=== PATIENT | female | born 1990 | race Caucasian/White ===

== ENCOUNTER 2018-06-29 07:40 | Emergency (ER) | payer MEDICAID ==
[2018-06-29 07:53] VITALS: O2SAT 97
[2018-06-29] MEDS ORDERED: TORAdol 30 mg Injection IM ONE (08:12)
[2018-06-29 08:19] LABS: BASOPHIL % 0.2 % (0.0-0.4); Basophil (Absolute #) 0.02 (0-0.4); Eosinophil % 2.1 % (0.00-5.0); Granulocyte Absolute (ANC) 5.94 (1.4-6.9); Granulocytes % 63.6 % (36.0-66.0); Hematocrit 44.4 % (35-47); Hemoglobin 14.8 gm/dl (12.0-16.0); Lymphocyte (Absolute #) 2.11 (1.0-4.6); Lymphocytes % 22.6 % (24.0-44.0); Mean Cell Volume 84.1 fl (78-100); Mean Corpuscular Hgb Concent. 33.3 g/dl (32-36); Mean Platelet Volume 9.9 fl (6-9.5); Monocyte (Absolute #) 1.07 (0.0-1.3); Monocytes % 11.5 % (0.0-12.0); Platelet Count 259 K/mm3 (150-450); Red Blood Count 5.28 M/mm3 (4.1-5.4); Red Cell Distribution Width 14.6 % (11.5-14.0); White Blood Count 9.3 K/mm3 (4.0-10.5)
[2018-06-29] MEDS ORDERED: TORAdol 30 mg Injection ONE (08:19)
[2018-06-29 08:30] LABS: ANION GAP 13.3 MEQ/L (5-15); BLOOD UREA NITROGEN 9 mg/dL (7-17); CHLORIDE 108 mmol/L (98-107); Carbon Dioxide 23 mmol/L (22-30); Creatinine 1 0.62 mg/dL (0.52-1.04); Glucose 109 mg/dL (74-106); SODIUM 140 mmol/L (137-145)
--- NOTE | 2018-06-29 08:30 | ERPHSYRPT ---
- History of Present Illness Time Seen by Provider: 06/29/18 08:10 Source: patient Exam Limitations: no limitations Patient Subjective Stated Complaint: here for a possible abscess to right groin area for 10 days now. Triage Nursing Assessment: pt has tenderness to right groin area, no swelling, drainage noted. pt alert, and walked in , Physician History: The patient is a 27-year-old female complaining of an abscess to the right groin that began 10 days ago. Early in the infection, the area was red and raised. She has a history of MRSA. She thought this was another MRSA infection. She took ibuprofen and put hot compresses on the region. The swelling began to become smaller. There was no drainage of the abscess. This morning when she woke up, it was very painful for her to walk. It was also very painful to touch the area. As per our discussion, she would like to try a trial of antibiotics today without incision and drainage. She states that she did not have a fever. Her past medical history is significant for MRSA infections. Timing/Duration: day(s) (10), gradual onset, improved (but now painful) Quality: painful Severity: moderate Location: other (right groin) Possible Causes: no cause identified Associated Symptoms: denies symptoms Allergies/Adverse Reactions: No Known Drug Allergies Allergy (Unverified 03/16/16 12:22) Hx Tetanus, Diphtheria Vaccination/Date Given: Yes Hx Influenza Vaccination/Date Given: Yes Hx Pneumococcal Vaccination/Date Given: No Immunizations Up to Date: Yes - Review of Systems Constitutional: No Fever, No Chills Eyes: No Symptoms Ears, Nose, & Throat: No Symptoms Respiratory: No Cough, No Dyspnea Cardiac: No Chest Pain, No Edema, No Syncope Abdominal/Gastrointestinal: No Abdominal Pain, No Nausea, No Vomiting, No Diarrhea Genitourinary Symptoms: No Dysuria Musculoskeletal: No Back Pain, No Neck Pain Skin: Induration Neurological: No Dizziness, No Focal Weakness, No Sensory Changes Psychological: No Symptoms Endocrine: No Symptoms Hematologic/Lymphatic: No Symptoms Immunological/Allergic: No Symptoms All Other Systems: Reviewed and Negative - Past Medical History Pertinent Past Medical History: No Neurological History: No Pertinent History ENT History: No Pertinent History Cardiac History: No Pertinent History Respiratory History: No Pertinent History Endocrine Medical History: No Pertinent History Musculoskeletal History: No Pertinent History GI Medical History: No Pertinent History History: No Pertinent History Psycho-Social History: No Pertinent History Female Reproductive Disorders: No Pertinent History - Past Surgical History Past Surgical History: Yes Neuro Surgical History: No Pertinent History Cardiac: No Pertinent History Respiratory: No Pertinent History Gastrointestinal: Appendectomy Genitourinary: No Pertinent History Musculoskeletal: Orthopedic Surgery Female Surgical History: Section Other Surgical History: r elbow - Social History Smoking Status: Current every day smoker How long have you smoked: 4 years Exposure to second hand smoke: Yes Drug Use: none Patient Lives Alone: Yes - Female History Hx Last Menstrual Period: 11 days ago Hx Now: No - Nursing Vital Signs Nursing Vital Signs: Initial Vital Signs Temperature 97.9 F 06/29/18 07:48 Pulse Rate 82 06/29/18 07:48 Respiratory Rate 16 06/29/18 07:48 Blood Pressure 115/80 06/29/18 07:48 O2 Sat by Pulse Oximetry 97 06/29/18 07:48 Pain Scale Pain Intensity 4 - Physical Exam General Appearance: no apparent distress, alert Eye Exam: PERRL/EOMI, eyes nml inspection Ears, Nose, Throat Exam: normal ENT inspection, pharynx normal, moist mucous membranes Neck Exam: normal inspection, non-tender, supple, full range of motion Respiratory Exam: normal breath sounds, lungs clear, No respiratory distress Cardiovascular Exam: regular rate/rhythm, normal heart sounds Gastrointestinal/Abdomen Exam: soft, mass, No tenderness Pelvic Exam: not done Rectal Exam: not done Back Exam: normal inspection, normal range of motion, No CVA tenderness, No vertebral tenderness Extremity Exam: normal inspection, normal range of motion Neurologic Exam: alert, oriented x 3, cooperative, normal mood/affect, sensation nml, No motor deficits Skin Exam: other (Examination of the fold of the right groin shows a healed small wound to the mid groin fold. There is very small palpable tender 0.5 x 1 cm hard mass. This mass is exquisitely tender to light palpation. There is no fluctuance.) SpO2 Interpretation: normal SpO2: 97 Ordered Tests: Active Orders 24 hr Category Date Time Status BMP Stat Lab 06/29/18 08:10 Completed CBC W DIFF Stat Lab 06/29/18 08:10 Completed HCG QUALITATIVE,SERUM Stat Lab 06/29/18 08:10 Completed Medication Summary Discontinued Medications Generic Name Dose Route Start Last Admin Trade Name Freq PRN Reason Stop Dose Admin Ketorolac Tromethamine 60 mg 06/29/18 08:12 06/29/18 08:20 Toradol 30 Mg Injection IM 06/29/18 08:13 60 mg STAT ONE Administration Ketorolac Tromethamine Confirm 06/29/18 08:19 Toradol 30 Mg Injection Administered 06/29/18 08:20 Dose 60 mg .ROUTE .STK-MED ONE Lab/Rad Data: Laboratory Result Diagrams 06/29/18 08:10 06/29/18 08:10 Laboratory Results 06/29/18 06/29/18 06/29/18 Range/Units 08:10 08:10 08:10 WBC 9.3 (4.0-10.5) K/mm3 RBC 5.28 (4.1-5.4) M/mm3 Hgb 14.8 (12.0-16.0) gm/dl Hct 44.4 (35-47) % MCV 84.1 (78-100) fl MCH 28.0 (26-32) pg MCHC 33.3 (32-36) g/dl RDW 14.6 H (11.5-14.0) % Plt Count 259 (150-450) K/mm3 MPV 9.9 H (6-9.5) fl Gran % 63.6 (36.0-66.0) % Eos # (Auto) 0.20 (0-0.5) Absolute Lymphs (auto) 2.11 (1.0-4.6) Absolute Monos (auto) 1.07 (0.0-1.3) Lymphocytes % 22.6 L (24.0-44.0) % Monocytes % 11.5 (0.0-12.0) % Eosinophils % 2.1 (0.00-5.0) % Basophils % 0.2 (0.0-0.4) % Absolute Granulocytes 5.94 (1.4-6.9) Basophils # 0.02 (0-0.4) Sodium 140 (137-145) mmol/L Potassium 4.0 (3.5-5.1) mmol/L Chloride 108 H (98-107) mmol/L Carbon Dioxide 23 (22-30) mmol/L Anion Gap 13.3 (5-15) MEQ/L BUN 9 (7-17) mg/dL Creatinine 0.62 (0.52-1.04) mg/dL Estimated GFR > 60.0 ML/MIN Glucose 109 H (74-106) mg/dL Calcium 9.0 (8.4-10.2) mg/dL Serum , Qual NEGATIVE (Negative) - Progress Progress: improved Progress Note: 06/29/18 08:36 The tender palpable mass in the right groin could be a small painful indurated abscess. However, it also could be a tender lymph node. I discussed treatment options with the patient. She prefers to have a trial of antibiotics today and reassess over the next few days. 06/29/18 09:10 Pt better after toradol 60 mg IM. Counseled pt/family regarding: diagnosis, need for follow-up - Departure Time of Disposition: 09:12 Departure Disposition: Home Clinical Impression: Lymphadenitis Condition: Stable Critical Care Time: No Referrals: CRISTY WIN MD [Primary Care Provider] - Additional Instructions: You likely have a swollen lymph node as result of the abscess that you had for 10 days. You were given Toradol 60 mg by IM in the ER. As per our discussion, we will try clindamycin 300 mg 4 times a day for 10 days. You may also take Tylenol No. 3 one tablet every 4-6 hours as needed for pain. Take Tylenol and ibuprofen as needed as well. Follow-up with your primary medical doctor in one to 2 days. Prescriptions: Clindamycin HCl 300 mg PO QID #40 capsule Codeine Phosphate/APAP #3 [Tylenol #3 Tablet] 1 tab PO Q4-6HPRN PRN #6 tablet PRN Reason: Mild To Moderate Pain
[2018-06-29 09:30] VITALS: BP 129/61; PULSE 74
== END 2018-06-29 09:30 | disposition home or self-care (01) ==
LOC: ED 07:40
DX: I88.9 Nonspecific lymphadenitis, unspecified (principal); Z86.14 Personal history of Methicillin resistant Staphylococcus aureus infection
CPT/HCPCS: 36415; 80048; 81025; 85025; 96372; 99284; J1885

== ENCOUNTER 2018-11-19 19:43 | Emergency (ER) | payer MEDICAID ==
[2018-11-19] MEDS ORDERED: Sodium Chloride 0.9% 1000 ML 1,000 ML IV STA (20:59)
[2018-11-19] MEDS ORDERED: Zofran 4 MG/2 ML VIAL IV ONE (20:59)
[2018-11-19] MEDS ORDERED: Hydromorphone 1 mg/ml Ampule IV ONE ×2 (20:59→23:16)
--- NOTE | 2018-11-19 20:59 | ERPHSYRPT ---
- History of Present Illness Time Seen by Provider: 11/19/18 20:50 Historian: patient, family Exam Limitations: no limitations Physician History: 27 y/o white female presents with bilat flank pain. began this am and worse. no vaginal bleeding or hematuria today but in the last 3 months, pt states she has had intermittent vaginal and rectal bleeding. no sig abd pain. no vomiting. much worse than any uti in past Timing/Duration: today, constant, sudden, worse Quality: sharpness, stabbing Abdominal Pain Onset Location: suprapubic, flank (bilateral) Pain Radiation: flank Severity of Pain-Max: moderate Severity of Pain-Current: moderate Modifying Factors: Improves With: nothing Associated Symptoms: No nausea, No vomiting Previous symptoms: no prior history Allergies/Adverse Reactions: No Known Drug Allergies Allergy (Unverified 03/16/16 12:22) Hx Tetanus, Diphtheria Vaccination/Date Given: Yes Hx Influenza Vaccination/Date Given: Yes Hx Pneumococcal Vaccination/Date Given: No - Review of Systems Constitutional: No Symptoms Eyes: No Symptoms Ears, Nose, & Throat: No Symptoms Respiratory: No Symptoms Cardiac: No Symptoms Abdominal/Gastrointestinal: Abdominal Pain (suprapubic pain) Genitourinary Symptoms: No Symptoms Musculoskeletal: Back Pain (bilat flank) Skin: No Symptoms Neurological: No Symptoms Psychological: No Symptoms Endocrine: No Symptoms Hematologic/Lymphatic: No Symptoms Immunological/Allergic: No Symptoms All Other Systems: Reviewed and Negative - Past Medical History Pertinent Past Medical History: No Neurological History: No Pertinent History ENT History: No Pertinent History Cardiac History: No Pertinent History Respiratory History: No Pertinent History Endocrine Medical History: No Pertinent History Musculoskeletal History: No Pertinent History GI Medical History: No Pertinent History History: No Pertinent History Psycho-Social History: No Pertinent History Female Reproductive Disorders: No Pertinent History - Past Surgical History Past Surgical History: Yes Neuro Surgical History: No Pertinent History Cardiac: No Pertinent History Respiratory: No Pertinent History Gastrointestinal: Appendectomy Genitourinary: No Pertinent History Musculoskeletal: Orthopedic Surgery Female Surgical History: Section Other Surgical History: r elbow - Social History Smoking Status: Current every day smoker How long have you smoked: 4 years Exposure to second hand smoke: Yes Drug Use: none Patient Lives Alone: Yes - Nursing Vital Signs Nursing Vital Signs: Initial Vital Signs Pulse Rate 61 11/19/18 20:50 Respiratory Rate 16 11/19/18 20:50 Blood Pressure 140/82 11/19/18 20:50 O2 Sat by Pulse Oximetry 98 11/19/18 20:50 Pain Scale Pain Intensity 3 - Physical Exam General Appearance: moderate distress, alert, anxiety Eye Exam: PERRL/EOMI, eyes nml inspection Ears, Nose, Throat Exam: normal ENT inspection, moist mucous membranes Neck Exam: normal inspection, non-tender, supple, full range of motion Respiratory Exam: normal breath sounds, lungs clear, airway intact, No chest tenderness, No respiratory distress Cardiovascular Exam: regular rate/rhythm, normal heart sounds, normal peripheral pulses Gastrointestinal/Abdomen Exam: soft, tenderness (suprapubic), guarding, No rebound Pelvic Exam: not done Rectal Exam: not done Back Exam: normal inspection, normal range of motion, CVA tenderness (bilat), No vertebral tenderness Extremity Exam: normal inspection, normal range of motion, pelvis stable Neurologic Exam: alert, cooperative, 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 Skin Exam: normal color, warm, dry Lymphatic Exam: No adenopathy SpO2 Interpretation: normal O2 Delivery: Room Air - Course Nursing assessment & vital signs reviewed: Yes Ordered Tests: Active Orders 24 hr Category Date Time Status IV Insertion STAT Care 11/19/18 20:59 Active ABDOMEN AND PELVIS W/0 CONTRAS [CT] Stat Exams 11/19/18 21:35 Taken AMYLASE Stat Lab 11/19/18 21:23 Completed CBC W DIFF Stat Lab 11/19/18 21:23 Completed CMP Stat Lab 11/19/18 21:23 Completed CULTURE,URINE Stat Lab 11/19/18 22:15 Received HCG,QUALITATIVE URINE Stat Lab 11/19/18 22:15 Completed LIPASE Stat Lab 11/19/18 21:23 Completed Lactic Acid Stat Lab 11/19/18 21:16 Completed UA W/RFX UR CULTURE Stat Lab 11/19/18 22:15 Completed Medication Summary Generic Name Dose Route Start Last Admin Trade Name Freq PRN Reason Stop Dose Admin Ceftriaxone Sodium/Dextrose 1 g in 50 mls @ 100 mls/hr 11/19/18 22:43 Rocephin 1 Gm-D5w 50 Ml Bag IV 11/19/18 23:12 STAT STA Discontinued Medications Generic Name Dose Route Start Last Admin Trade Name Freq PRN Reason Stop Dose Admin Hydromorphone HCl 1 mg 11/19/18 20:59 11/19/18 21:20 Hydromorphone 1 Mg/Ml Ampule IV 11/19/18 21:00 1 mg STAT ONE Administration Hydromorphone HCl Confirm 11/19/18 21:17 Hydromorphone 1 Mg/Ml Ampule Administered 11/19/18 21:18 Dose 1 mg .ROUTE .STK-MED ONE Sodium Chloride 1,000 mls @ 999 mls/hr 11/19/18 20:59 11/19/18 21:20 Sodium Chloride 0.9% 1000 Ml IV 11/19/18 21:59 999 mls/hr .Q1H1M STA Administration Sodium Chloride Confirm 11/19/18 21:17 Sodium Chloride 0.9% 1000 Ml Administered 11/19/18 21:18 Dose 1,000 mls @ ud .ROUTE .STK-MED ONE Ondansetron HCl 4 mg 11/19/18 20:59 11/19/18 21:20 Zofran 4 Mg/2 Ml Vial IV 11/19/18 21:00 4 mg STAT ONE Administration Ondansetron HCl Confirm 11/19/18 21:16 Zofran 4 Mg/2 Ml Vial Administered 11/19/18 21:17 Dose 4 mg .ROUTE .STK-MED ONE Lab/Rad Data: Laboratory Result Diagrams 11/19/18 21:23 11/19/18 21:23 Laboratory Results 11/19/18 11/19/18 11/19/18 Range/Units 22:15 22:15 21:23 WBC (4.0-10.5) K/mm3 RBC (4.1-5.4) M/mm3 Hgb (12.0-16.0) gm/dl Hct (35-47) % MCV (78-100) fl MCH (26-32) pg MCHC (32-36) g/dl RDW (11.5-14.0) % Plt Count (150-450) K/mm3 MPV (6-9.5) fl Gran % (36.0-66.0) % Eos # (Auto) (0-0.5) Absolute Lymphs (auto) (1.0-4.6) Absolute Monos (auto) (0.0-1.3) Lymphocytes % (24.0-44.0) % Monocytes % (0.0-12.0) % Eosinophils % (0.00-5.0) % Basophils % (0.0-0.4) % Absolute Granulocytes (1.4-6.9) Basophils # (0-0.4) Sodium 140 (137-145) mmol/L Potassium 3.6 (3.5-5.1) mmol/L Chloride 106 (98-107) mmol/L Carbon Dioxide 25 (22-30) mmol/L Anion Gap 12.6 (5-15) MEQ/L BUN 8 (7-17) mg/dL Creatinine 0.62 (0.52-1.04) mg/dL Estimated GFR > 60.0 ML/MIN Glucose 101 (74-106) mg/dL Lactic Acid (0.4-2.0) Calcium 9.5 (8.4-10.2) mg/dL Total Bilirubin 0.30 (0.2-1.3) mg/dL AST 19 (14-36) U/L ALT 24 (0-35) U/L Alkaline Phosphatase 71 (38-126) U/L Serum Total Protein 7.1 (6.3-8.2) g/dL Albumin 4.1 (3.5-5.0) g/dL Amylase 96 (30-110) U/L Lipase 70 (23-300) U/L Urine Color YELLOW (YELLOW) Urine Appearance CLOUDY (CLEAR) Urine pH 5.0 (5-6) Ur Specific [place] 1.028 (1.005-1.025) Urine Protein NEGATIVE (Negative) Urine Ketones NEGATIVE (NEGATIVE) Urine Blood NEGATIVE (0-5) Koby/ul Urine Nitrite NEGATIVE (NEGATIVE) Urine Bilirubin NEGATIVE (NEGATIVE) Urine Urobilinogen NEGATIVE (0-1) mg/dL Ur Leukocyte Esterase MODERATE (NEGATIVE) Urine WBC (Auto) 51-100 (0-5) /HPF Urine RBC (Auto) 26-50 (0-2) /HPF U Epithel Cells (Auto) FEW (FEW) /HPF Urine Bacteria (Auto) FEW (NEGATIVE) /HPF Urine Mucus (Auto) MANY (NEGATIVE) /HPF Urine Culture Reflexed YES (NO) Urine Glucose NEGATIVE (NEGATIVE) mg/dL Urine HCG, Qual NEGATIVE (Negative) 11/19/18 11/19/18 Range/Units 21:23 21:16 WBC 10.4 (4.0-10.5) K/mm3 RBC 5.04 (4.1-5.4) M/mm3 Hgb 14.5 (12.0-16.0) gm/dl Hct 42.8 (35-47) % MCV 84.9 (78-100) fl MCH 28.8 (26-32) pg MCHC 33.9 (32-36) g/dl RDW 14.2 H (11.5-14.0) % Plt Count 246 (150-450) K/mm3 MPV 10.0 H (6-9.5) fl Gran % 58.8 (36.0-66.0) % Eos # (Auto) 0.23 (0-0.5) Absolute Lymphs (auto) 2.98 (1.0-4.6) Absolute Monos (auto) 1.04 (0.0-1.3) Lymphocytes % 28.7 (24.0-44.0) % Monocytes % 10.0 (0.0-12.0) % Eosinophils % 2.2 (0.00-5.0) % Basophils % 0.3 (0.0-0.4) % Absolute Granulocytes 6.09 (1.4-6.9) Basophils # 0.03 (0-0.4) Sodium (137-145) mmol/L Potassium (3.5-5.1) mmol/L Chloride (98-107) mmol/L Carbon Dioxide (22-30) mmol/L Anion Gap (5-15) MEQ/L BUN (7-17) mg/dL Creatinine (0.52-1.04) mg/dL Estimated GFR ML/MIN Glucose (74-106) mg/dL Lactic Acid 1.2 (0.4-2.0) Calcium (8.4-10.2) mg/dL Total Bilirubin (0.2-1.3) mg/dL AST (14-36) U/L ALT (0-35) U/L Alkaline Phosphatase (38-126) U/L Serum Total Protein (6.3-8.2) g/dL Albumin (3.5-5.0) g/dL Amylase (30-110) U/L Lipase (23-300) U/L Urine Color (YELLOW) Urine Appearance (CLEAR) Urine pH (5-6) Ur Specific [place] (1.005-1.025) Urine Protein (Negative) Urine Ketones (NEGATIVE) Urine Blood (0-5) Koby/ul Urine Nitrite (NEGATIVE) Urine Bilirubin (NEGATIVE) Urine Urobilinogen (0-1) mg/dL Ur Leukocyte Esterase (NEGATIVE) Urine WBC (Auto) (0-5) /HPF Urine RBC (Auto) (0-2) /HPF U Epithel Cells (Auto) (FEW) /HPF Urine Bacteria (Auto) (NEGATIVE) /HPF Urine Mucus (Auto) (NEGATIVE) /HPF Urine Culture Reflexed (NO) Urine Glucose (NEGATIVE) mg/dL Urine HCG, Qual (Negative) - Progress Progress: improved Progress Note: 11/19/18 22:44 ct abd/pelvis-3.7 cm left ovarian cyst; tiny amt of culdesac fluid. new tiny gallstone. Counseled pt/family regarding: lab results, diagnosis, need for follow-up, rad results - Departure Departure Disposition: Home Clinical Impression: Abdominal pain, UTI (urinary tract infection), Left ovarian cyst Condition: Stable Critical Care Time: No Referrals: CRISTY WIN MD [Primary Care Provider] - Additional Instructions: drink plenty of fluids. follow up primary doctor for further management of your abdominal issues and ovarian cyst. Prescriptions: Hydrocodone/APAP 5/325 [[place] 5/325 mg] 1 each PO Q8H PRN PRN #6 tablet MDD 3 PRN Reason: Pain Ciprofloxacin [Cipro 500 MG] 500 mg PO BID #14 tablet
[2018-11-19] MEDS ORDERED: Zofran 4 MG/2 ML VIAL ONE (21:16)
[2018-11-19] MEDS ORDERED: Hydromorphone 1 mg/ml Ampule ONE ×2 (21:17→23:43)
[2018-11-19] MEDS ORDERED: Sodium Chloride 0.9% 1000 ML 1,000 ML ONE (21:17)
[2018-11-19 21:25] LABS: BASOPHIL % 0.3 % (0.0-0.4); Basophil (Absolute #) 0.03 (0-0.4); Eosinophil % 2.2 % (0.00-5.0); Eosinophil (Absolute #) 0.23 (0-0.5); Granulocyte Absolute (ANC) 6.09 (1.4-6.9); Granulocytes % 58.8 % (36.0-66.0); Hematocrit 42.8 % (35-47); Hemoglobin 14.5 gm/dl (12.0-16.0); Lymphocyte (Absolute #) 2.98 (1.0-4.6); Lymphocytes % 28.7 % (24.0-44.0); Mean Cell Volume 84.9 fl (78-100); Mean Corpuscular Hemoglobin 28.8 pg (26-32); Mean Corpuscular Hgb Concent. 33.9 g/dl (32-36); Monocyte (Absolute #) 1.04 (0.0-1.3); Platelet Count 246 K/mm3 (150-450); Red Blood Count 5.04 M/mm3 (4.1-5.4); Red Cell Distribution Width 14.2 % (11.5-14.0); White Blood Count 10.4 K/mm3 (4.0-10.5)
[2018-11-19 21:37] LABS: ALBUMIN 4.1 g/dL (3.5-5.0); ALKALINE PHOSPHATASE 71 U/L (38-126); AMYLASE 96 U/L (30-110); ANION GAP 12.6 MEQ/L (5-15); BLOOD UREA NITROGEN 8 mg/dL (7-17); CHLORIDE 106 mmol/L (98-107); Calcium 9.5 mg/dL (8.4-10.2); Carbon Dioxide 25 mmol/L (22-30); Creatinine 1 0.62 mg/dL (0.52-1.04); Glucose 101 mg/dL (74-106); Potassium 3.6 mmol/L (3.5-5.1); SGOT/AST 19 U/L (14-36); SGPT/ALT 24 U/L (0-35); SODIUM 140 mmol/L (137-145); Total Protein 7.1 g/dL (6.3-8.2)
[2018-11-19 22:24] LABS: Appearance CLOUDY (CLEAR); Bacteria FEW /HPF (NEGATIVE); Bilirubin NEGATIVE (NEGATIVE); Blood NEGATIVE Ery/ul (0-5); Epithelial Cells FEW /HPF (FEW); Glucose NEGATIVE (NEGATIVE); Ketones NEGATIVE (NEGATIVE); Leukocyte Esterase MODERATE (NEGATIVE); Mucus MANY /HPF (NEGATIVE); Nitrite NEGATIVE (NEGATIVE); Protein,Urine Dip NEGATIVE (Negative); RBC 26-50 /HPF (0-2); Specific Gravity 1.028 (1.005-1.025); Urobilinogen NEGATIVE mg/dL (0-1); WBC 51-100 /HPF (0-5)
[2018-11-19] MEDS ORDERED: ROCEPHIN 1 Gm-D5w 50 ml Bag** 1 G/50 ML IVPB IV STA (22:43)
[2018-11-19] MEDS ORDERED: ROCEPHIN 1 Gm-D5w 50 ml Bag** 1 G/50 ML IVPB IV ONE (22:52)
[2018-11-19 23:58] VITALS: BP 120/76; PULSE 89; O2SAT 95
--- NOTE | 2018-11-20 09:23 | XRAY ---
Indication: Superpubic and bilateral flank pain. Intermittent vaginal/rectal bleeding 3 months. Multiple contiguous axial images obtained through the abdomen and pelvis without contrast as ordered. Comparison: October 29, 2012. Lung bases demonstrates stable right lower lobe calcified granulomas. Heart is not enlarged. Stomach is distended with food/fluid. Noncontrasted stomach and bowel loops appear nonobstructed. Appendectomy reported. Minimal sigmoid diverticulosis. New 3.7 cm left ovary cyst. Also tiny cul-de-sac fluid presumed physiologic from rupture/leaking cyst. No walled off fluid collection or free air. Remaining liver, gallbladder, pancreas, spleen, adrenal glands, kidneys, ureters, bladder, uterus, and aorta appear unremarkable for noncontrast exam. Osseous structures intact. No ventral or inguinal hernias. Impression: 1. New 3.7 cm left ovary cyst with tiny cul-de-sac fluid. 2. New tiny gallstone and sigmoid diverticulosis. Again evidence for old granulomatous disease. 3. Remaining CT abdomen/pelvis without contrast exam is negative. CT DI 23.32
== END 2018-11-19 23:58 | disposition home or self-care (01) ==
LOC: ED 19:43
DX: R10.9 Unspecified abdominal pain (principal); N39.0 Urinary tract infection, site not specified; N83.202 Unspecified ovarian cyst, left side
CPT/HCPCS: 36000; 36415; 74176; 80053; 81001; 82150; 83605; 83690; 84703; 85025; 87086; 96360; 96365; 96374; 96375; 96376; 99284; J0696; J1170; J2405

== ENCOUNTER 2019-12-02 16:35 | Emergency (ER) | payer MEDICAID ==
[2019-12-02 16:50] VITALS: BP 137/81; PULSE 83; O2SAT 97
--- NOTE | 2019-12-02 16:54 | ERPHSYRPT ---
- History of Present Illness Time Seen by Provider: 12/02/19 16:42 Source: patient Exam Limitations: no limitations Physician History: 28 years old female presented in the ER with chief complaint of right eye lower lid swelling with some burning aching pain. Patient report she started to have some discomfort and right lower eyelid yesterday and today has noticed small swelling which is gradually increasing. No difficulty vision or movements of eyeball. Denies any discharge. Timing/Duration: yesterday, gradual onset, worse Location: right eye Severity: mild Apparent Injury: no Associated Symptoms: pain, burning, itching, redness Visual Assistive Devices: None Chemical Exposure: No Trauma: No Welding Arc/Tanning Bed Exposure: No Allergies/Adverse Reactions: No Known Drug Allergies Allergy (Verified 12/02/19 16:50) Home Medications: No Reportable Medications [No Reported Medications] 12/02/19 [History] Hx Tetanus, Diphtheria Vaccination/Date Given: Yes Hx Influenza Vaccination/Date Given: Yes Hx Pneumococcal Vaccination/Date Given: No - Review of Systems Constitutional: No Symptoms Eyes: Eye Pain, Itchy Ears, Nose, & Throat: No Symptoms Respiratory: No Symptoms Cardiac: No Symptoms Abdominal/Gastrointestinal: No Symptoms Musculoskeletal: No Symptoms Skin: No Symptoms Neurological: No Symptoms Psychological: No Symptoms Endocrine: No Symptoms Hematologic/Lymphatic: No Symptoms Immunological/Allergic: No Symptoms - Past Medical History Pertinent Past Medical History: No Neurological History: No Pertinent History ENT History: No Pertinent History Cardiac History: No Pertinent History Respiratory History: No Pertinent History Endocrine Medical History: No Pertinent History Musculoskeletal History: No Pertinent History GI Medical History: No Pertinent History History: No Pertinent History Psycho-Social History: No Pertinent History Female Reproductive Disorders: No Pertinent History Other Medical History: kidney infection - Past Surgical History Past Surgical History: Yes Neuro Surgical History: No Pertinent History Cardiac: No Pertinent History Respiratory: No Pertinent History Gastrointestinal: Appendectomy Genitourinary: No Pertinent History Musculoskeletal: Orthopedic Surgery Female Surgical History: Section Other Surgical History: r elbow - Social History Smoking Status: Current every day smoker How long have you smoked: 4 years Exposure to second hand smoke: Yes Drug Use: none Patient Lives Alone: Yes - Nursing Vital Signs Nursing Vital Signs: Initial Vital Signs Temperature 98.5 F 12/02/19 16:41 Pulse Rate 83 12/02/19 16:41 Blood Pressure 137/81 12/02/19 16:41 O2 Sat by Pulse Oximetry 97 12/02/19 16:41 Pain Scale Pain Intensity 3 - Physical Exam General Appearance: no apparent distress, alert Vision Acuity Degree Evaluation Phase: Uncorrected Vision Acuity Right Eye: 20/30 Vision Acuity Left Eye: 20/50 Eye Exam: right eye: eyelid inflammation (Right lower lid medial and bumpy inflammation. 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 Recommended supportive care with moist warm compresses and outpatient follow-up. Discussed signs symptoms of worsening needing return which she seemed understanding. Counseled pt/family regarding: diagnosis, need for follow-up - Departure Departure Disposition: Home Clinical Impression: Hordeolum externum (stye) Qualifiers: Laterality: right Eyelid: lower Qualified Code(s): H00.012 - Hordeolum externum right lower eyelid Condition: Stable Critical Care Time: No Referrals: CRISTY WIN MD [Primary Care Provider] - Follow Up with PCP/3 days Instructions: Hi PABLO) Additional Instructions: Apply moist warm compresses for 5 to 10 minutes three to five times per day in order to facilitate drainage. Massage and gentle wiping of the affected eyelid after the warm compress can also aid in drainage. Patients should discontinue eye makeup to support healing. Follow-up with primary care for reevaluation.
== END 2019-12-02 17:01 | disposition home or self-care (01) ==
LOC: ED 16:35
DX: H00.012 Hordeolum externum right lower eyelid (principal)
CPT/HCPCS: 99283

== ENCOUNTER 2020-03-09 23:33 | Emergency (ER) | payer MEDICAID ==
[2020-03-10] MEDS ORDERED: Sodium Chloride 0.9% 1000 ML 1,000 ML IV STA (00:39)
[2020-03-10] MEDS ORDERED: Sodium Chloride 0.9% 1000 ML 1,000 ML ONE (00:52)
[2020-03-10 01:01] LABS: Absolute Neutrophil Ct (ANC) 9.44 (1.4-6.9); Appearance SLIGHTLY CLOUDY (CLEAR); BASOPHIL % 0.2 % (0.0-0.4); Bacteria RARE /HPF (NEGATIVE); Basophil (Absolute #) 0.03 (0-0.4); Bilirubin NEGATIVE (NEGATIVE); Blood NEGATIVE Ery/ul (0-5); Eosinophil % 1.9 % (0.00-5.0); Eosinophil (Absolute #) 0.27 (0-0.5); Epithelial Cells RARE /HPF (FEW); Glucose NEGATIVE (NEGATIVE); Hematocrit 43.8 % (35-47); Hemoglobin 14.5 gm/dl (12.0-16.0); Ketones NEGATIVE (NEGATIVE); Leukocyte Esterase SMALL (NEGATIVE); Lymphocyte (Absolute #) 3.23 (1.0-4.6); Lymphocytes % 22.5 % (24.0-44.0); Mean Cell Volume 85.7 fl (78-100); Mean Corpuscular Hemoglobin 28.4 pg (26-32); Mean Corpuscular Hgb Concent. 33.1 g/dl (32-36); Mean Platelet Volume 9.9 fl (7.5-11.0); Monocyte (Absolute #) 1.39 (0.0-1.3); Monocytes % 9.7 % (0.0-12.0); Mucus SLIGHT /HPF (NEGATIVE); Neutrophil % 65.7 % (36.0-66.0); Nitrite NEGATIVE (NEGATIVE); Platelet Count 263 K/mm3 (150-450); Protein,Urine Dip NEGATIVE (Negative); Red Blood Count 5.11 M/mm3 (4.1-5.4); Red Cell Distribution Width 14.7 % (11.5-14.0); Specific Gravity 1.023 (1.005-1.025); Urobilinogen NEGATIVE mg/dL (0-1); White Blood Count 14.4 K/mm3 (4.0-10.5)
[2020-03-10 01:09] LABS: ALBUMIN 4.2 g/dL (3.5-5.0); ALKALINE PHOSPHATASE 69 U/L (38-126); ANION GAP 9.8 MEQ/L (5-15); BLOOD UREA NITROGEN 9 mg/dL (7-17); CHLORIDE 106 mmol/L (98-107); Calcium 9.3 mg/dL (8.4-10.2); Carbon Dioxide 24 mmol/L (22-30); EST GLOMERULAR FILTRATION RATE > 60.0 ML/MIN; Glucose 125 mg/dL (74-106); LIPASE 68 U/L (23-300); SGOT/AST 19 U/L (14-36); SGPT/ALT 22 U/L (0-35); SODIUM 135 mmol/L (137-145); Total Protein 7.3 g/dL (6.3-8.2)
[2020-03-10 02:05] VITALS: BP 121/78
[2020-03-10] MEDS ORDERED: ROCEPHIN 1 Gm-D5w 50 ml Bag** 1 G/50 ML IVPB IV ONE (02:28)
[2020-03-10] MEDS ORDERED: ROCEPHIN 1 Gm-D5w 50 ml Bag** 1 G/50 ML IVPB IV STA (02:29)
--- NOTE | 2020-03-10 02:36 | ERPHSYRPT ---
- History of Present Illness Time Seen by Provider: 03/09/20 23:50 Source: patient Patient Subjective Stated Complaint: pt states "It looks like a blood bath went on in the [place]liet." "I burp up rotten eggs." Triage Nursing Assessment: pt ambulated into the er; pt is axo x4; c/o rectal bleeding; states 7/10 to rectum; abd is round, soft, tender to the touch; hyperactive bowel sounds to all quads; external hemrrhoids present; foul smelling burp; vital sounds wnl Physician History: Patient is a 29-year-old female presents to our ED for evaluation of bright red blood per rectum during bowel movement. Patient states that she also senses a smell consistent with rotten egg when she burps. She is experiencing left lower abdominal tenderness. Symptoms started today. Symptoms have been constant. No specific worsening or improving factors. No trauma. No fever. No rash. No new foods. Symptoms are mild to moderate in intensity. No specific worsening or improving factors. Patient is otherwise healthy. She voices no other complaints or concerns at this time. Timing/Duration: today Severity: moderate Modifying Factors: Improves With: nothing Associated Symptoms: abdominal pain, No nausea, No vomiting, No shortness of breath, No diaphoresis, No cough, No chills, No headaches, No syncope, No seizure Allergies/Adverse Reactions: No Known Drug Allergies Allergy (Verified 03/09/20 23:41) Hx Tetanus, Diphtheria Vaccination/Date Given: Yes Hx Influenza Vaccination/Date Given: No Hx Pneumococcal Vaccination/Date Given: No Travel Risk - International Travel Have you traveled outside of the country in past 3 weeks: No - Coronavirus Screening Close contact with a COVID-19 positive Pt in past 14-21 Days: No - Review of Systems Constitutional: No Symptoms, No Fever, No Chills Eyes: No Symptoms Ears, Nose, & Throat: No Symptoms Respiratory: No Symptoms, No Cough, No Dyspnea Cardiac: No Symptoms, No Chest Pain, No Edema, No Syncope Abdominal/Gastrointestinal: No Symptoms, No Abdominal Pain, No Nausea, No Vomiting, No Diarrhea Genitourinary Symptoms: No Symptoms, No Dysuria Musculoskeletal: No Symptoms, No Back Pain, No Neck Pain Skin: No Symptoms, No Rash Neurological: No Symptoms, No Dizziness, No Focal Weakness, No Sensory Changes Psychological: No Symptoms Endocrine: No Symptoms Hematologic/Lymphatic: No Symptoms Immunological/Allergic: No Symptoms All Other Systems: Reviewed and Negative - Past Medical History Pertinent Past Medical History: Yes Neurological History: No Pertinent History ENT History: No Pertinent History Cardiac History: No Pertinent History Respiratory History: No Pertinent History Endocrine Medical History: No Pertinent History Musculoskeletal History: No Pertinent History GI Medical History: No Pertinent History History: No Pertinent History Psycho-Social History: Depression Female Reproductive Disorders: No Pertinent History Other Medical History: kidney infection, [place] personal - Past Surgical History Past Surgical History: Yes Neuro Surgical History: No Pertinent History Cardiac: No Pertinent History Respiratory: No Pertinent History Gastrointestinal: Appendectomy Genitourinary: No Pertinent History Musculoskeletal: Orthopedic Surgery Female Surgical History: Section Other Surgical History: r elbow - Social History Smoking Status: Current every day smoker How long have you smoked: 4 years Exposure to second hand smoke: No Drug Use: none Patient Lives Alone: No - Female History Hx Now: No - Nursing Vital Signs Nursing Vital Signs: Initial Vital Signs Temperature 98.6 F 03/09/20 23:42 Pulse Rate 84 03/09/20 23:42 Respiratory Rate 18 03/09/20 23:42 Blood Pressure 143/82 03/09/20 23:42 O2 Sat by Pulse Oximetry 96 03/09/20 23:42 Pain Scale Pain Intensity 4 - Physical Exam General Appearance: no apparent distress, alert Eye Exam: PERRL/EOMI, eyes nml inspection Ears, Nose, Throat Exam: normal ENT inspection, TMs normal, pharynx normal, moist mucous membranes, other (Patient burped during physical exam and a foul smell of sulfur-like odor emanated from patient's mouth.) Neck Exam: normal inspection, non-tender, supple, full range of motion Respiratory Exam: normal breath sounds, lungs clear, No respiratory distress Cardiovascular Exam: regular rate/rhythm, normal heart sounds, normal peripheral pulses Gastrointestinal/Abdomen Exam: soft, normal bowel sounds, distention, other ( Somewhat distended abdomen. Hyperactive bowel sounds. No guarding. No pulsatile masses. No rebound. No organomegaly observed.), No tenderness, No mass Rectal Exam: other (Rectal exam revealed a nonthrombosed external hemorrhoid. Unclear whether or not rectal bleeding is coming from this external hemorrhoid. Patient will require outpatient colonoscopy for further evaluation. No active bleeding.) Back Exam: normal inspection, normal range of motion, No CVA tenderness, No vertebral tenderness Extremity Exam: normal inspection, normal range of motion, pelvis stable Neurologic Exam: alert, oriented x 3, cooperative, normal mood/affect, nml cerebellar function, nml station & gait, sensation nml, No motor deficits Skin Exam: normal color, warm, dry, No rash Lymphatic Exam: No adenopathy SpO2 Interpretation: normal SpO2: 99 O2 Delivery: Room Air - Course Nursing assessment & vital signs reviewed: Yes - CT Exams Abdomen/Pelvis CT Interpretation: Tele-radiologist Report (No acute inflammatory or infectious process identified in the abdomen or pelvis. No evidence of bowel obstruction. No evidence of diverticulosis or diverticulitis. A 1.6 x 1.5 cm mildly hyp erdense left ovarian lesion observed. Patient will require a nonemergent pelvic ultrasound for further eval) Ordered Tests: Active Orders 24 hr Category Date Time Status IV Insertion STAT Care 03/10/20 00:39 Active ABDOMEN AND PELVIS W CONTRAST [CT] Stat Exams 03/10/20 00:39 Taken CBC W DIFF Stat Lab 03/10/20 00:40 Completed CMP Stat Lab 03/10/20 00:40 Completed LIPASE Stat Lab 03/10/20 00:40 Completed UA W/RFX UR CULTURE Stat Lab 03/10/20 00:40 Completed Medication Summary Generic Name Dose Route Start Last Admin Trade Name Freq PRN Reason Stop Dose Admin Ceftriaxone Sodium/Dextrose 1 g in 50 mls @ 100 mls/hr 03/10/20 02:29 03/10/20 02:31 Rocephin 1 Gm-D5w 50 Ml Bag IV 03/10/20 02:58 100 mls/hr STAT STA 100 mls/hr Administration Discontinued Medications Generic Name Dose Route Start Last Admin Trade Name Freq PRN Reason Stop Dose Admin Sodium Chloride 1,000 mls @ 999 mls/hr 03/10/20 00:39 03/10/20 01:59 Sodium Chloride 0.9% 1000 Ml IV 03/10/20 01:39 Infused .Q1H1M STA Infusion Sodium Chloride Confirm 03/10/20 00:52 Sodium Chloride 0.9% 1000 Ml Administered 03/10/20 00:53 Dose 1,000 mls @ ud .ROUTE .STK-MED ONE Ceftriaxone Sodium/Dextrose Confirm 03/10/20 02:28 Rocephin 1 Gm-D5w 50 Ml Bag Administered 03/10/20 02:29 Dose 1 g in 50 mls @ ud IV .STK-MED ONE Lab/Rad Data: Laboratory Result Diagrams 03/10/20 00:40 03/10/20 00:40 Laboratory Results 03/10/20 03/10/20 03/10/20 Range/Units 00:40 00:40 00:40 WBC 14.4 H (4.0-10.5) K/mm3 RBC 5.11 (4.1-5.4) M/mm3 Hgb 14.5 (12.0-16.0) gm/dl Hct 43.8 (35-47) % MCV 85.7 (78-100) fl MCH 28.4 (26-32) pg MCHC 33.1 (32-36) g/dl RDW 14.7 H (11.5-14.0) % Plt Count 263 (150-450) K/mm3 MPV 9.9 (7.5-11.0) fl Gran % 65.7 (36.0-66.0) % Eos # (Auto) 0.27 (0-0.5) Absolute Lymphs (auto) 3.23 (1.0-4.6) Absolute Monos (auto) 1.39 H (0.0-1.3) Lymphocytes % 22.5 L (24.0-44.0) % Monocytes % 9.7 (0.0-12.0) % Eosinophils % 1.9 (0.00-5.0) % Basophils % 0.2 (0.0-0.4) % Absolute Granulocytes 9.44 H (1.4-6.9) Basophils # 0.03 (0-0.4) Sodium 135 L (137-145) mmol/L Potassium 4.0 (3.5-5.1) mmol/L Chloride 106 (98-107) mmol/L Carbon Dioxide 24 (22-30) mmol/L Anion Gap 9.8 (5-15) MEQ/L BUN 9 (7-17) mg/dL Creatinine 0.60 (0.52-1.04) mg/dL Estimated GFR > 60.0 ML/MIN Glucose 125 H (74-106) mg/dL Calcium 9.3 (8.4-10.2) mg/dL Total Bilirubin 0.20 (0.2-1.3) mg/dL AST 19 (14-36) U/L ALT 22 (0-35) U/L Alkaline Phosphatase 69 (38-126) U/L Serum Total Protein 7.3 (6.3-8.2) g/dL Albumin 4.2 (3.5-5.0) g/dL Lipase 68 (23-300) U/L Urine Color YELLOW (YELLOW) Urine Appearance SLIGHTLY CLOUDY (CLEAR) Urine pH 5.0 (5-6) Ur Specific [place] 1.023 (1.005-1.025) Urine Protein NEGATIVE (Negative) Urine Ketones NEGATIVE (NEGATIVE) Urine Blood NEGATIVE (0-5) Koby/ul Urine Nitrite NEGATIVE (NEGATIVE) Urine Bilirubin NEGATIVE (NEGATIVE) Urine Urobilinogen NEGATIVE (0-1) mg/dL Ur Leukocyte Esterase SMALL (NEGATIVE) Urine WBC (Auto) 11-15 (0-5) /HPF Urine RBC (Auto) 6-10 (0-2) /HPF U Epithel Cells (Auto) RARE (FEW) /HPF Urine Bacteria (Auto) RARE (NEGATIVE) /HPF Urine Mucus (Auto) SLIGHT (NEGATIVE) /HPF Urine Culture Reflexed NO (NO) Urine Glucose NEGATIVE (NEGATIVE) mg/dL - Progress Progress: unchanged, improved Progress Note: 03/10/20 02:38 Patient reassessed. Symptoms improved. Now pain at this time. No active rectal bleeding. A external hemorrhoid was observed on examination. Unclear whether this is a source of rectal bleeding. Patient states that her insurance has referred her to another physician. Patient states that she is now referred to Dr. Curran and she requested all follow-up be done with Dr. Curran. Patient understand that she has a left ovarian lesion and that this lesion will require a follow-up outpatient pelvic ultrasound for further evaluation. She will see Dr. Curran to order this outpatient pelvic ultrasound. Also in light of her rectal bleeding patient will require a colonoscopy. Patient will follow up with Dr. Curran to obtain this colonoscopy. Patient's pulmonary nodule and pulmonary calcified granulomas are stable. UTI was observed in her UA. An associated leukocytosis was also observed which is likely due to this urinary tract infection. Patient received a gram of Rocephin in our ED. A prescription for Keflex was forwarded to patient's pharmacy. Plan of care discussed with patient. She agrees to follow-up with Dr. Curran within 48 hours for reevaluation. Counseled pt/family regarding: lab results, diagnosis, need for follow-up, rad results - Departure Departure Disposition: Home Clinical Impression: Hematochezia, Leukocytosis, UTI (urinary tract infection), Lesion of left ovary, Calcified granuloma of lung, Pulmonary nodule, External hemorrhoid, Umbilical hernia without mention of obstruction or gangrene Condition: Stable Critical Care Time: No Referrals: CRISTY WIN MD [Primary Care Provider] - KEVIN CURRAN [ACTIVE STAFF] - Instructions: Gastrointestinal Bleeding (DC) Additional Instructions: Please follow-up with your primary care doctor, Dr. Curran to arrange for an outpatient pelvic ultrasound to further evaluate lesion on your left ovary. Also follow-up with Dr. Curran to arrange for an outpatient colonoscopy to further evaluate your rectal bleeding. A prescription for antibiotics has been forwarded to your pharmacy to treat your urinary tract infection. Discharge/Care Plan NINAANA MARIA TURNER was seen on 03/10/20 in the Emergency Room. The patient was counseled regarding Diagnosis,Lab results, Imaging studies, need for follow up and when to return to the Emergency Room. Prescriptions given: Discharge Note I have spoken with the patient and/or caregivers. I have explained the patient's condition, diagnosis and treatment plan based on the information available to me at this time. I have answered the patient's and/or caregiver's questions and addressed any concerns. The patient and/or caregivers have as good understanding of the patient's diagnosis, condition and treatment plan as can be expected at this point. The vital signs have been stable. The patient's condition is stable and appropriate for discharge from the emergency department. The patient will pursue further outpatient evaluation with the primary care physician or other designated or consulting physician as outlined in the discharge instructions. The patient and/or caregivers are agreeable to this plan of care and follow-up instructions have been explained in detail. The patient and/or caregivers have received these instruction. The patient/and or caregivers are aware that any significant change in condition or worsening of symptoms should prompt an immediate return to this or the closest emergency department or call 911. Prescriptions: Cephalexin Mh 500 mg [Keflex 500 mg] 500 mg PO QID 5 Days #20 capsule
[2020-03-10 02:55] VITALS: PULSE 82; O2SAT 97
--- NOTE | 2020-03-10 09:18 | XRAY ---
Indication: Rectal pain and bleeding. Diverticulitis. Multiple contiguous axial images obtained through the abdomen and pelvis using 80 cc Isovue 370 contrast only. Comparison: November 19, 2018. Lung bases demonstrates stable right lower lobe calcified granulomas. No infiltrate or effusion. Heart is not enlarged. Stomach is distended with food/fluid. Noncontrasted stomach and bowel loops remain nonobstructed. Appendectomy reported. No abnormal bowel wall thickening or inflammatory changes. Left ovary now demonstrates a 1.5 cm lesion slightly hyperdense possibly viscous cyst, hemorrhagic cyst, or collapsing follicular cyst. There is again tiny cul-de-sac fluid presumed physiologic from rupture/leaking cyst. No walled off fluid collection or free air. Remaining liver, gallbladder, pancreas, spleen, adrenal glands, kidneys, ureters, bladder, uterus, and aorta appear normal in CT appearance and attenuation. No pathologic retroperitoneal lymphadenopathy. Osseous structures intact. No ventral or inguinal hernias. Impression: 1. Small left ovary slightly hyperdense lesion either viscus cyst, hemorrhagic cyst, or collapsing cyst. More likely suspect collapsing cyst as there is tiny cul-de-sac fluid. 2. Stable right lower lobe calcified granulomas. 3. Remaining CT abdomen/pelvis with contrast exam is negative. Comment: Preliminary interpretation was made by [facility]. No critical discrepancy.
== END 2020-03-10 02:55 | disposition home or self-care (01) ==
LOC: ED 23:33
DX: K92.1 Melena (principal); D72.829 Elevated white blood cell count, unspecified; N39.0 Urinary tract infection, site not specified; N94.89 Other specified conditions associated with female genital organs and menstrual cycle; J84.10 Pulmonary fibrosis, unspecified; R91.1 Solitary pulmonary nodule; K64.4 Residual hemorrhoidal skin tags; K42.9 Umbilical hernia without obstruction or gangrene
CPT/HCPCS: 36000; 36415; 74177; 80053; 81001; 83690; 85025; 96360; 96372; 99284; J0696